=== PATIENT | male | born 1990 | race African-American/Black ===

== ENCOUNTER 2017-12-04 12:47 | Emergency (ER) | payer OTHER, SELFPAY | END 2017-12-04 13:09 | disposition home or self-care (01) | LOC: ERS 12:47 | DX: L03.032 Cellulitis of left toe (principal) | CPT/HCPCS: 99283 ==

== ENCOUNTER 2018-05-30 01:43 | Emergency (ER) | payer SELFPAY | END 2018-05-30 03:18 | disposition home or self-care (01) | LOC: ERS 01:43 | DX: S06.0X0A Concussion without loss of consciousness, initial encounter (principal); W50.0XXA Accidental hit or strike by another person, initial encounter | CPT/HCPCS: 99283 ==

== ENCOUNTER 2018-06-12 02:24 | Inpatient (IN) | payer SELFPAY ==
[2018-06-12] MEDS ORDERED: Ketorolac Tromethamine 30 MG/ML VIAL ONE (02:40)
[2018-06-12 03:10] LABS: #Basophils 0.1 thou/uL (0.0-0.2); #Eosinphils 0.1 thou/uL (0.0-0.7); #Lymphocytes 2.4 thou/uL (1.20-3.40); #Monocytes 0.5 thou/uL (0.11-0.59); #Neutrophils 2.7 thou/uL (1.40-6.50); %Basophils 1.4 % (0.0-1.0); %Eosinophils 1.9 % (0.0-10.0); %Lymphocytes 41.5 % (21.0-51.0); %Neutrophils 46.2 % (42.0-75.0); Hemoglobin 14.6 g/dL (14.0-18.0); Mean Corpuscular Hemoglobin 29.5 pg (27.0-31.0); Mean Corpuscular Volume 84.2 fL (78.0-98.0); Mean Platelet Volume 7.4 fL (7.4-10.4); Platelet Count 164 thou/uL (130-400); RBC Distribution Width 12.1 % (11.5-14.5); Red Blood Cell (RBC) Count 4.97 mill/uL (4.70-6.10); White Blood Cell (WBC) Count 5.7 thou/uL (4.8-10.8)
[2018-06-12 03:30] LABS: ALT (SGPT) 42 U/L (8-55); AST (SGOT) 43 U/L (5-34); Albumin 4.6 g/dL (3.5-5.0); Alkaline Phosphatase 50 U/L (40-150); Anion Gap 16 mmol/L (10-20); BUN (Urea Nitrogen) 15 mg/dL (8.9-20.6); Bilirubin, Total 0.4 mg/dL (0.2-1.2); Calc. Creatinine Clearance 0 mL/min (70-130); Calcium 9.6 mg/dL (7.8-10.44); Carbon Dioxide 22 mmol/L (22-29); Chloride 104 mmol/L (98-107); Estimated GFR-MDRD Greater than 90; Globulin 2.9 g/dL (2.4-3.5); Glucose 122 mg/dL (70-105); Potassium 3.2 mmol/L (3.5-5.1); Protein, Total 7.5 g/dL (6.0-8.3); Sodium 139 mmol/L (136-145)
[2018-06-12 03:31] LABS: Acetaminophen Less than 6.0 mcg/mL (10.0-30.0); Alcohol 167 mg/dL (Less than 10); Salicylate Less than 8.0 mg/dL (15.0-30.0)
[2018-06-12] MEDS ORDERED: Clindamycin/D5W 900 mg/50 ml Premix Bag ONE (04:50)
[2018-06-12] MEDS ORDERED: Adacel (T-DAP) 0.5 ML VIAL ONE (04:50)
[2018-06-12] MEDS ORDERED: Morphine 4 MG/ML VIAL ONE (04:52)
[2018-06-12 05:32] LABS: Amphetamine Not Detected (NotDetected); Barbiturates Screen Not Detected (NotDetected); Benzodiazepine Screen Not Detected (NotDetected); Cocaine Metabolite Screen Not Detected (NotDetected); Medtox Control Line Valid? VALID (VALID); Medtox Reader # READER 1; Methadone Not Detected (NotDetected); Methamphetamine Not Detected (NotDetected); Opiate Screen Not Detected (NotDetected); Oxycodone Screen Not Detected (NotDetected); Phencyclidine (PCP) Not Detected (NotDetected); THC/Cannabinoid Screen Not Detected (NotDetected); Tricyclic Screen Not Detected (NotDetected)
[2018-06-12] MEDS ORDERED: Ondansetron ODT 4 MG TAB PO PRN (07:38)
[2018-06-12] MEDS ORDERED: Dextrose 5% in Water 1,000 ML IV PRN (07:38)
[2018-06-12] MEDS ORDERED: hydrALAZINE 20 MG/ML VIAL SLOW IVP PRN (07:38)
[2018-06-12] MEDS ORDERED: Ondansetron HCl/PF 4 MG/2 ML Vial IVP PRN (07:38)
[2018-06-12] MEDS ORDERED: Dextrose 50% Abboject 50 ML SYRINGE SLOW IVP PRN (07:38)
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
[2018-06-12] MEDS: Famotidine/PF 20 mg/2ml Vial SLOW IVP SCH ×2 (10:26→21:52)
[2018-06-12] MEDS: Sodium Chloride 0.9% 1,000 ML IV SCH ×2 (10:27→17:15)
[2018-06-12] MEDS: Morphine 4 MG/ML VIAL SLOW IVP PRN ×2 (11:11→19:27)
[2018-06-12] MEDS: Clindamycin/D5W 600 MG in Premix Bag 1 BAG IVPB SCH ×2 (13:01→18:44)
[2018-06-12] MEDS ORDERED: PROPOFOL 200 MG/20 ML VIAL ONE (13:20)
[2018-06-12] MEDS ORDERED: Succinylcholine Chloride 20 MG/ML 10 ml SYRINGE FS ONE ×2 (13:20→13:39)
[2018-06-12] MEDS ORDERED: Glycopyrrolate 0.2 MG/ML 5 ML SYRINGE ONE (13:20)
[2018-06-12] MEDS ORDERED: Vecuronium 10 MG VIAL ONE (13:20)
[2018-06-12] MEDS ORDERED: Dexamethasone 20 MG/5 ML VIAL ONE (13:20)
[2018-06-12] MEDS ORDERED: Ondansetron HCl/PF 4 MG/2 ML Vial ONE ×2 (13:20→15:54)
[2018-06-12] MEDS ORDERED: Lidocaine 1% PF 5 ML VIAL ONE (13:20)
[2018-06-12] MEDS ORDERED: Midazolam HCl 2 mg/2 ml Vial ONE (13:23)
[2018-06-12] MEDS ORDERED: Lidocaine 1% w/Epinephrine 1:100K 30 ML VIAL ONE (13:31)
[2018-06-12] MEDS ORDERED: Oxymetazoline HCl 0.05% ( 15 ML ) ONE (13:31)
[2018-06-12] MEDS ORDERED: Chlorhexidine Gluconate 15 ML UDCUP SSP ONE (13:31)
[2018-06-12] MEDS ORDERED: Fentanyl 250 MCG/5 ML VIAL ONE (13:39)
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
[2018-06-12] MEDS ORDERED: Bacitracin Zinc Ointment 30 gm TUBE ONE (15:53)
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
[2018-06-12] MEDS: Chlorhexidine Gluconate 15 ML UDCUP SSP SCH (21:52)
[2018-06-13] MEDS: Clindamycin/D5W 600 MG in Premix Bag 1 BAG IVPB SCH ×4 (00:56→18:26)
[2018-06-13] MEDS: Sodium Chloride 0.9% 1,000 ML IV SCH ×2 (00:56→08:30)
[2018-06-13] MEDS: Morphine 4 MG/ML VIAL SLOW IVP PRN (06:26)
[2018-06-13 06:28] LABS: #Lymphocytes 1.4 thou/uL (1.20-3.40); #Monocytes 0.6 thou/uL (0.11-0.59); #Neutrophils 6.8 thou/uL (1.40-6.50); %Basophils 0.2 % (0.0-1.0); %Eosinophils 0.1 % (0.0-10.0); %Lymphocytes 15.5 % (21.0-51.0); %Monocytes 7.3 % (0.0-10.0); %Neutrophils 76.9 % (42.0-75.0); Hemoglobin 15.7 g/dL (14.0-18.0); Mean Corpuscular HGB CONC 33.6 g/dL (32.0-36.0); Mean Corpuscular Hemoglobin 28.6 pg (27.0-31.0); Mean Corpuscular Volume 85.1 fL (78.0-98.0); Mean Platelet Volume 7.7 fL (7.4-10.4); Platelet Count 173 thou/uL (130-400); RBC Distribution Width 12.1 % (11.5-14.5); Red Blood Cell (RBC) Count 5.48 mill/uL (4.70-6.10); White Blood Cell (WBC) Count 8.8 thou/uL (4.8-10.8)
[2018-06-13 06:43] LABS: Anion Gap 13 mmol/L (10-20); BUN (Urea Nitrogen) 8 mg/dL (8.9-20.6); Calc. Creatinine Clearance 119 mL/min (70-130); Calcium 8.9 mg/dL (7.8-10.44); Carbon Dioxide 24 mmol/L (22-29); Chloride 102 mmol/L (98-107); Estimated GFR-MDRD Greater than 90; Glucose 124 mg/dL (70-105); Potassium 4.5 mmol/L (3.5-5.1); Sodium 134 mmol/L (136-145)
[2018-06-13] MEDS: Chlorhexidine Gluconate 15 ML UDCUP SSP SCH (08:29)
[2018-06-13] MEDS: Famotidine/PF 20 mg/2ml Vial SLOW IVP SCH (08:29)
[2018-06-13] MEDS: Hydrocodone-Acetamin 15 ML UDCUP PO PRN ×2 (10:23→14:58)
[2018-06-13] MEDS ORDERED: Ibuprofen 100 MG/5 ML UDCUP PO PRN (16:45)
[2018-06-13] MEDS ORDERED: Acetaminophen/Codeine Oral Solution PO PRN (16:46)
[2018-06-13 16:52] VITALS: BP 134/87; TEMP 98.4
--- NOTE | 2018-06-13 18:09 | CT ---
CT OF THE FACE: Date: 06-13-18 Comparison: 06-12-18 History: Evaluate facial bones status post-surgical repair of bilateral mandibular fractures. Technique: Serial axial CT imaging was obtained at 2.5 mm intervals through the facial bones without contrast. Coronal and sagittal reformatted imaging obtained. FINDINGS: The imaged intracranial contents appear grossly unremarkable. The frontal sinuses, maxillary sinuses, ethmoid air cells, sphenoid sinuses and mastoid air cells are grossly unremarkable aside from mild m ucosal thickening of maxillary sinuses and left sphenoid sinus. The nasal bones, the zygomatic arches , and the pterygoid plates are intact. There is metallic hardware associated with the mandibular and maxillary teeth. There is an obliquely oriented nondisplaced fracture involving the mandible just to the left of the symphysis. There is a n on-displaced obliquely oriented fracture involving the angle of the mandible on the right. Neither te mporomandibular joint is dislocation. No new fractures are identified. The orbital floor and the medial orbital wall appears intact bilaterally. There is a swelling in the perimandibular region bilaterally, right greater than left. IMPRESSION: Mandibular fractures status post-surgical reduction as detailed above. POS: [facility]
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
== END 2018-06-13 19:25 | disposition home or self-care (01) | DRG 132 ==
LOC: ERS 02:24 → SURG A 06:42
PROVIDERS: ADMIT Surgery; ATTEND Surgery
PROC: 0NST04Z Reposition Right Mandible with Internal Fixation Device, Open Approach (ICD-10-PCS; principal; 2018-06-12)
PROC: 0NH Head and Facial Bones, Insertion (ICD-10-PCS; 2018-06-12)
DX: S02.641A Fracture of ramus of right mandible, initial encounter for closed fracture (principal); Y04.8XXA Assault by other bodily force, initial encounter; S02.66XA Fracture of symphysis of mandible, initial encounter for closed fracture
CPT/HCPCS: 36415; 70450; 70486; 80048; 80053; 80306; 80307; 85025; 90471; 90715; 96361; 96365; 96375; C1713; J1100; J1885; J2001; J2250; J2270; J2405; J2704; J3010; J3490; S0028

== ENCOUNTER 2020-02-05 00:34 | Emergency (ER) | payer SELFPAY ==
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
== END 2020-02-05 02:28 | disposition home or self-care (01) ==
LOC: ERS 00:34
DX: R06.2 Wheezing (principal); R05 Cough; F32.9 Major depressive disorder, single episode, unspecified; F41.9 Anxiety disorder, unspecified
CPT/HCPCS: 71045; 94664

== ENCOUNTER 2020-08-25 02:35 | Emergency (ER) | payer SELFPAY ==
[2020-08-25] MEDS ORDERED: Ondansetron PF 4 MG/2 ML Vial ONE (03:15)
[2020-08-25] MEDS ORDERED: Ketorolac Tromethamine 30 MG/ML VIAL ONE (04:01)
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
[2020-08-25] MEDS ORDERED: Iopamidol-370 76% 500 ML 1 ML ONE (15:40)
== END 2020-08-25 04:27 | disposition home or self-care (01) ==
LOC: ERS 02:35
DX: S06.9X9A Unspecified intracranial injury with loss of consciousness of unspecified duration, initial encounter (principal); M54.6 Pain in thoracic spine; R10.9 Unspecified abdominal pain; R10.817 Generalized abdominal tenderness; V49.40XA Driver injured in collision with unspecified motor vehicles in traffic accident, initial encounter
CPT/HCPCS: 70450; 71260; 74177; 96374; 96375; J1885; J2405; Q9967

== ENCOUNTER 2023-10-21 18:17 | Emergency (ER) | payer SELFPAY ==
[2023-10-21] MEDS ORDERED: Acetaminophen 500 MG TAB ONE (20:03)
[2023-10-21] MEDS ORDERED: Ibuprofen 800 MG TAB ONE (20:04)
[2023-10-21 21:09] LABS: SARS-CoV-2 NAA Rapid Test Not Detected (NotDetected)
== END 2023-10-21 21:02 | disposition home or self-care (01) ==
LOC: ERS 18:17
DX: B34.9 Viral infection, unspecified (principal); R19.7 Diarrhea, unspecified; R11.2 Nausea with vomiting, unspecified
CPT/HCPCS: 99284

== ENCOUNTER 2023-12-09 08:34 | Emergency (ER) | payer SELFPAY | END 2023-12-09 10:01 | disposition home or self-care (01) | LOC: ERS 08:34 | DX: L03.113 Cellulitis of right upper limb (principal) ==